=== PATIENT | female | born 1980 | race African-American/Black ===

== ENCOUNTER 2017-04-11 11:29 | Emergency (ER) | payer OTHER ==
[~2017-04-11] VITALS: Ht 157.5 cm; Wt 76.8 kg
[~2017-04-11 11:29] MED LIST: ALDACTONE50 MG PO; AMOXICILLIN 50500 MG PO; BACTRIM DS 8001 TAB PO; CARAFATE 1GM1 G PO; CELEBREX50 MG PO; CELLCEPT 5500 MG/TAB PO; CEPHALEXIN500 M1 PO; FLEXERIL 1010 MG/TAB PO; LINZESS145CAP PO; LINZESS290CAP PO; MAXALT10 MG PO; MOTRIN 200200 MG/TAB PO; MOTRIN 800800 MG/TAB PO; NAPROSYN500 MG PO; NO HOME MEDICATIONS; NORCO 325 MG-51 TAB PO; NORVASC 10MG10 MG PO; ONE DAILY MULTI1 TA1 PO; PERCOCET 325 MG1 TA2 PO; PLAQUENIL 200M200 MG PO; PREDNISONE10 MG PO; PRIL40 PO; PROVENTIL0.09 MG/A1 IH; TUSS PO; ULTRAM 50MG TAB50 MG; ULTRAM 50MG TAB50 MG PO; VITAMIN D1000 IU PO; ZOVIA 1/35E 351 TA1 PO
[2017-04-11 11:32] VITALS: TEMP 99.1
[2017-04-11] MEDS ORDERED: CLARITIN 1010 MG/TAB PO (11:35)
[2017-04-11] MEDS ORDERED: CIALIS5 MG PO (11:35)
[2017-04-11] MEDS ORDERED: ASPIRIN 81M81 MG/TA2 PO (11:37)
[2017-04-11] MEDS ORDERED: NEXIUM 40MG40 MG PO (11:37)
[2017-04-11 12:26] LABS: PH 6 (5-8); SQUAMOUS EPITHELIAL 0-2 /hpf; URINE APPEARANCE Clear; URINE BACTERIA None Seen /hpf; URINE BILIRUBIN Negative (NEGATIVE); URINE BLOOD Negative (NEGATIVE); URINE COLOR Straw; URINE GLUCOSE Negative (NEGATIVE); URINE KETONE Negative (NEGATIVE); URINE RBC None Seen /hpf; URINE UROBILINOGEN Negative (NEGATIVE); URINE WBC 0-2 /hpf
[2017-04-11 12:33] LABS: BASO % 0.8 % (0.0-2.0); EOS # 0.3 (0.0-0.7); EOS % 5.4 % (0-4.0); GRAN # 1.8 (1.4-6.5); GRAN % 34.9 % (42.2-75.2); HEMATOCRIT 37.4 % (37.0-47.0); LYMPH # 2.3 (1.2-3.4); LYMPH % 45.6 % (20.0-51.0); MEAN CELL VOLUME 86 fl (80.0-100.0); MEAN CORPUSCULAR HEMOGLOBIN 27 pg (27.0-31.0); MEAN CORPUSCULAR HGB CONC 32 g/dl (33.0-37.0); MONO # 0.7 (0.1-0.6); MONO % 13.1 % (1.7-9.3); PLATELET COUNT 295 K/mm3 (130-400); RED BLOOD COUNT 4.36 M/mm3 (4.10-5.30); REDCELL DISTRIBUTION WIDTH-CV 13.3 % (11.5-14.5)
[2017-04-11 12:34] LABS: HEMOGLOBIN 11.8 g/dl (12.5-16.0)
[2017-04-11 12:45] LABS: ADJUSTED CALCIUM 8.8 mg/dL (8.4-10.2); ALANINE AMINOTRANSFERASE 16 U/L (9-52); ALBUMIN 4.4 gm/dL (3.5-5.0); ALKALINE PHOSPHATASE 77 U/L (50-136); ANION GAP 12 mmol/L (7-16); BILIRUBIN,TOTAL 0.5 mg/dL (0.0-1.0); BLOOD UREA NITROGEN 10 mg/dL (7-17); CALCIUM 9.1 mg/dL (8.4-10.2); CARBON DIOXIDE 23 mmol/L (22-30); CHLORIDE 103 mmol/L (98-107); CREATININE, serum 0.61 mg/dL (0.52-1.25); GLUCOSE 71 mg/dL (74-106); LIPASE 86 U/L (23-300); POTASSIUM 4.1 mmol/L (3.4-5.0); SODIUM 138 mmol/L (137-145); TOTAL PROTEIN 8.2 gm/dL (6.4-8.2)
[2017-04-11 12:46] LABS: C-REACTIVE PROTEIN < 0.5 mg/dL (0.0-0.9)
[2017-04-11] MEDS ORDERED: NORCO 325 MG-51 TAB PO (13:50)
[2017-04-11 14:18] VITALS: BP 118/75; PULSE 80
== END 2017-04-11 14:20 | disposition home or self-care (01) ==
LOC: COL.ER 11:29
PROVIDERS: Emergency Medicine
DX: N83.201 Unspecified ovarian cyst, right side (principal); I10 Essential (primary) hypertension; J45.909 Unspecified asthma, uncomplicated; R11.0 Nausea; M34.9 Systemic sclerosis, unspecified
CPT/HCPCS: J2405; J7030; Q9967

== ENCOUNTER 2017-05-26 06:45 | Emergency (ER) | payer OTHER ==
[~2017-05-26] VITALS: Ht 157.5 cm; Wt 77.3 kg
[~2017-05-26 06:45] MED LIST changes: +ASPIRIN 81M81 MG/TA2 PO; +CIALIS5 MG PO; +CLARITIN 1010 MG/TAB PO; +NEXIUM 40MG40 MG PO
[2017-05-26 06:48] VITALS: TEMP 99.1
[2017-05-26] MEDS ORDERED: NEXIUM 20MG20 MG PO (06:54)
[2017-05-26 07:38] LABS: BASO % 0.6 % (0.0-2.0); EOS # 0.1 (0.0-0.7); GRAN # 4.5 (1.4-6.5); GRAN % 68.7 % (42.2-75.2); LYMPH # 1.4 (1.2-3.4); LYMPH % 20.7 % (20.0-51.0); MEAN CELL VOLUME 85 fl (80.0-100.0); MEAN CORPUSCULAR HGB CONC 31 g/dl (33.0-37.0); MEAN PLATELET VOLUME 10.4 fl (7.4-10.4); MONO # 0.5 (0.1-0.6); MONO % 7.5 % (1.7-9.3); PLATELET COUNT 291 K/mm3 (130-400); RED BLOOD COUNT 4.24 M/mm3 (4.10-5.30); REDCELL DISTRIBUTION WIDTH-CV 13.4 % (11.5-14.5); WHITE BLOOD COUNT 6.6 K/mm3 (4.8-10.8)
[2017-05-26 07:39] LABS: HEMOGLOBIN 11.2 g/dl (12.5-16.0); MEAN CORPUSCULAR HEMOGLOBIN 26 pg (27.0-31.0)
[2017-05-26 07:57] LABS: ADJUSTED CALCIUM 8.8 mg/dL (8.4-10.2); ALANINE AMINOTRANSFERASE 21 U/L (9-52); ALBUMIN 4.3 gm/dL (3.5-5.0); ALKALINE PHOSPHATASE 97 U/L (50-136); ANION GAP 10 mmol/L (7-16); BILIRUBIN,TOTAL 0.4 mg/dL (0.0-1.0); BLOOD UREA NITROGEN 12 mg/dL (7-17); CARBON DIOXIDE 23 mmol/L (22-30); CHLORIDE 104 mmol/L (98-107); CREATININE, serum 0.56 mg/dL (0.52-1.25); GLUCOSE 85 mg/dL (74-106); POTASSIUM 3.8 mmol/L (3.4-5.0); SODIUM 138 mmol/L (137-145); TOTAL PROTEIN 7.9 gm/dL (6.4-8.2)
[2017-05-26 07:58] LABS: C-REACTIVE PROTEIN < 0.5 mg/dL (0.0-0.9)
[2017-05-26 08:16] LABS: PH 7 (5-8); SQUAMOUS EPITHELIAL 0-2 /hpf; URINE APPEARANCE Clear; URINE BACTERIA Rare /hpf; URINE BILIRUBIN Negative (NEGATIVE); URINE BLOOD Negative (NEGATIVE); URINE COLOR Colorless; URINE GLUCOSE Negative (NEGATIVE); URINE KETONE Negative (NEGATIVE); URINE RBC None Seen /hpf; URINE UROBILINOGEN Negative (NEGATIVE); URINE WBC 0-2 /hpf
[2017-05-26 09:17] VITALS: BP 113/73; PULSE 85
== END 2017-05-26 09:17 | disposition home or self-care (01) ==
LOC: COL.ER 06:45
PROVIDERS: Emergency Medicine
DX: G89.29 Other chronic pain (principal); R10.31 Right lower quadrant pain; K21.9 Gastro-esophageal reflux disease without esophagitis; I10 Essential (primary) hypertension; I73.00 Raynaud's syndrome without gangrene; M34.9 Systemic sclerosis, unspecified
CPT/HCPCS: J2765; J7030; Q9967

== ENCOUNTER 2017-07-21 13:43 | Day surgery (SDC) | payer OTHER ==
[~2017-07-21] VITALS: Ht 160 cm; Wt 75.9 kg
[~2017-07-21 13:43] MED LIST changes: +NEXIUM 20MG20 MG PO
[2017-07-21] MEDS ORDERED: NORVASC 5MG5 MG/TAB PO (14:14)
[2017-07-21 14:17] VITALS: BP 126/72; PULSE 88; TEMP 98.5
[2017-07-21] MEDS ORDERED: TYLENOL 325MG325 MG PO (14:18)
[2017-07-21] MEDS ORDERED: ADVIL200 MG PO (14:18)
[2017-07-21] MEDS ORDERED: CLARITIN 1010 MG/TAB PO (14:19)
[2017-07-21] MEDS ORDERED: MULTI VITAMINS1 TAB PO (14:20)
[2017-07-21 15:35] VITALS: BP 96/57; PULSE 73; TEMP 98.1
[2017-07-21 15:45] VITALS: BP 100/66; PULSE 74
[2017-07-21 16:00] VITALS: BP 78/63; PULSE 73
[2017-07-21 16:07] VITALS: BP 93/53; PULSE 76
== END 2017-07-21 16:44 | disposition home or self-care (01) ==
LOC: SDCO 13:43
DX: K22.8 Other specified diseases of esophagus (principal); K21.9 Gastro-esophageal reflux disease without esophagitis; K30 Functional dyspepsia; K29.30 Chronic superficial gastritis without bleeding; K59.00 Constipation, unspecified; D50.9 Iron deficiency anemia, unspecified; K58.9 Irritable bowel syndrome, unspecified; K25.9 Gastric ulcer, unspecified as acute or chronic, without hemorrhage or perforation
CPT/HCPCS: J2250; J2405; J3010; J7030

== ENCOUNTER → 2017-08-28 | Outpatient (CLI) | payer OTHER ==
[~2017-08-28] MED LIST changes: +ADVIL200 MG PO; +MULTI VITAMINS1 TAB PO; +NORVASC 5MG5 MG/TAB PO; +TYLENOL 325MG325 MG PO
== END ==
LOC: COL.RAD 10:19
DX: R10.13 Epigastric pain (principal); K59.00 Constipation, unspecified; R11.0 Nausea
CPT/HCPCS: A9537

== ENCOUNTER 2017-10-07 09:08 | Emergency (ER) | payer OTHER ==
[~2017-10-07] VITALS: Ht 160 cm; Wt 75.9 kg
[2017-10-07 09:11] VITALS: TEMP 98.4
[2017-10-07 09:59] LABS: COLLECTION METHOD CLEAN CATCH
[2017-10-07 10:06] LABS: BASO % 0.7 % (0.0-2.0); EOS # 0.2 (0.0-0.7); EOS % 3.9 % (0-4.0); GRAN % 44.1 % (42.2-75.2); LYMPH # 1.7 (1.2-3.4); LYMPH % 37.6 % (20.0-51.0); MEAN CELL VOLUME 83 fl (80.0-100.0); MEAN CORPUSCULAR HGB CONC 31 g/dl (33.0-37.0); MEAN PLATELET VOLUME 11.2 fl (7.4-10.4); MONO # 0.6 (0.1-0.6); MONO % 13.5 % (1.7-9.3); PLATELET COUNT 272 K/mm3 (130-400); RED BLOOD COUNT 4.18 M/mm3 (4.10-5.30); WHITE BLOOD COUNT 4.6 K/mm3 (4.8-10.8)
[2017-10-07 10:07] LABS: HEMATOCRIT 34.6 % (37.0-47.0); HEMOGLOBIN 10.6 g/dl (12.5-16.0); MEAN CORPUSCULAR HEMOGLOBIN 25 pg (27.0-31.0)
[2017-10-07] MEDS ORDERED: LIPITOR 10MG10 MG PO (10:11)
[2017-10-07 10:14] LABS: ADJUSTED CALCIUM 8.7 mg/dL (8.4-10.2); ALANINE AMINOTRANSFERASE 21 U/L (9-52); ALBUMIN 4.6 gm/dL (3.5-5.0); ALKALINE PHOSPHATASE 70 U/L (50-136); ANION GAP 9 mmol/L (7-16); BILIRUBIN,TOTAL 0.7 mg/dL (0.0-1.0); BLOOD UREA NITROGEN 15 mg/dL (7-17); CALCIUM 9.2 mg/dL (8.4-10.2); CARBON DIOXIDE 25 mmol/L (22-30); CHLORIDE 104 mmol/L (98-107); CREATININE, serum 0.58 mg/dL (0.52-1.25); GLUCOSE 87 mg/dL (74-106); LIPASE 92 U/L (23-300); SODIUM 138 mmol/L (137-145); TOTAL PROTEIN 8.1 gm/dL (6.4-8.2)
[2017-10-07 10:17] LABS: C-REACTIVE PROTEIN < 0.5 mg/dL (0.0-0.9); POTASSIUM 3.9 mmol/L (3.4-5.0)
[2017-10-07 10:25] LABS: MUCOUS Present /lpf; PH 6 (5-8); URINE APPEARANCE Clear; URINE BACTERIA None Seen /hpf; URINE BILIRUBIN Negative (NEGATIVE); URINE BLOOD Negative (NEGATIVE); URINE COLOR Yellow; URINE GLUCOSE Negative (NEGATIVE); URINE KETONE Trace (NEGATIVE); URINE LEUKOCYTE ESTERASE Negative (NEGATIVE); URINE PROTEIN(semi-quant) Negative (NEGATIVE); URINE RBC 0-2 /hpf; URINE UROBILINOGEN Negative (NEGATIVE)
[2017-10-07] MEDS ORDERED: NAPROXEN 3375 MG/TAB PO (10:42)
[2017-10-07] MEDS ORDERED: ZOFRAN ODT4 MG PO (10:42)
[2017-10-07 11:26] VITALS: BP 118/71; PULSE 72
== END 2017-10-07 11:00 | disposition home or self-care (01) ==
LOC: COL.ER 09:08
PROVIDERS: Emergency Medicine
DX: R10.11 Right upper quadrant pain (principal)
CPT/HCPCS: J1885; J2765; J7030

== ENCOUNTER 2017-10-30 20:12 | Emergency (ER) | payer OTHER ==
[~2017-10-30] VITALS: Ht 157.5 cm; Wt 80.0 kg
[~2017-10-30 20:12] MED LIST changes: +LIPITOR 10MG10 MG PO; +NAPROXEN 3375 MG/TAB PO; -TYLENOL 325MG325 MG PO; +TYLENOL 500MG500 MG PO; +ZOFRAN ODT4 MG PO
[2017-10-30 20:14] VITALS: TEMP 99.3
[2017-10-30 20:54] LABS: COLLECTION METHOD CLEAN CATCH
[2017-10-30 20:59] LABS: PH 6 (5-8); SQUAMOUS EPITHELIAL 0-2 /hpf; URINE APPEARANCE Clear; URINE BACTERIA None Seen /hpf; URINE BILIRUBIN Negative (NEGATIVE); URINE BLOOD 2+ (NEGATIVE); URINE COLOR Straw; URINE GLUCOSE Negative (NEGATIVE); URINE KETONE Negative (NEGATIVE); URINE LEUKOCYTE ESTERASE Negative (NEGATIVE); URINE NITRATE Negative (NEGATIVE); URINE PROTEIN(semi-quant) Negative (NEGATIVE); URINE RBC 0-2 /hpf; URINE UROBILINOGEN Negative (NEGATIVE)
[2017-10-30 23:15] LABS: BASO % 0.7 % (0.0-2.0); EOS # 0.2 (0.0-0.7); EOS % 4.4 % (0-4.0); GRAN # 1.5 (1.4-6.5); LYMPH # 2.4 (1.2-3.4); LYMPH % 52.9 % (20.0-51.0); MEAN CELL VOLUME 82 fl (80.0-100.0); MEAN CORPUSCULAR HGB CONC 30 g/dl (33.0-37.0); MEAN PLATELET VOLUME 10.4 fl (7.4-10.4); MONO # 0.4 (0.1-0.6); MONO % 8.8 % (1.7-9.3); PLATELET COUNT 313 K/mm3 (130-400); RED BLOOD COUNT 4.38 M/mm3 (4.10-5.30); REDCELL DISTRIBUTION WIDTH-CV 14.3 % (11.5-14.5)
[2017-10-30 23:17] LABS: HEMATOCRIT 35.9 % (37.0-47.0); HEMOGLOBIN 10.8 g/dl (12.5-16.0); MEAN CORPUSCULAR HEMOGLOBIN 25 pg (27.0-31.0)
[2017-10-30 23:26] LABS: ALBUMIN 4.4 gm/dL (3.5-5.0); BILIRUBIN,TOTAL 0.3 mg/dL (0.0-1.0); CALCIUM 9.2 mg/dL (8.4-10.2); CREATININE, serum 0.69 mg/dL (0.52-1.25); POTASSIUM 3.7 mmol/L (3.4-5.0)
[2017-10-31 00:24] VITALS: BP 115/81; PULSE 80
== END 2017-10-31 00:24 | disposition home or self-care (01) ==
LOC: COL.ER 20:12
PROVIDERS: Emergency Medicine
DX: N89.8 Other specified noninflammatory disorders of vagina (principal); J45.909 Unspecified asthma, uncomplicated; E78.5 Hyperlipidemia, unspecified; Z87.19 Personal history of other diseases of the digestive system; Z98.51 Tubal ligation status

== ENCOUNTER 2018-01-20 18:55 | Emergency (ER) | payer OTHER ==
[~2018-01-20] VITALS: Ht 157.5 cm; Wt 74.5 kg
[2018-01-20 19:20] VITALS: TEMP 98.5
[2018-01-20 20:19] LABS: BASO % 0.5 % (0.0-2.0); EOS # 0.2 (0.0-0.7); EOS % 2.7 % (0-4.0); GRAN # 2.4 (1.4-6.5); GRAN % 43.9 % (42.2-75.2); LYMPH # 2.3 (1.2-3.4); LYMPH % 40.9 % (20.0-51.0); MEAN CELL VOLUME 81 fl (80.0-100.0); MEAN CORPUSCULAR HGB CONC 30 g/dl (33.0-37.0); MONO # 0.7 (0.1-0.6); MONO % 11.8 % (1.7-9.3); PLATELET COUNT 286 K/mm3 (130-400); RED BLOOD COUNT 3.99 M/mm3 (4.10-5.30); REDCELL DISTRIBUTION WIDTH-CV 14.4 % (11.5-14.5)
[2018-01-20 20:21] LABS: HEMATOCRIT 32.2 % (37.0-47.0); HEMOGLOBIN 9.8 g/dl (12.5-16.0); MEAN CORPUSCULAR HEMOGLOBIN 25 pg (27.0-31.0)
[2018-01-20 20:29] LABS: INR 1.1 (0.8-3.0); PROTHROMBIN TIME 12.3 SECONDS (9.7-12.8)
[2018-01-20 20:40] LABS: ALANINE AMINOTRANSFERASE 31 U/L (9-52); ALKALINE PHOSPHATASE 102 U/L (50-136); ANION GAP 14 mmol/L (7-16); AST,SGOT 28 U/L (15-37); BILIRUBIN,TOTAL 0.2 mg/dL (0.0-1.0); BLOOD UREA NITROGEN 13 mg/dL (7-17); CALCIUM 8.7 mg/dL (8.4-10.2); CARBON DIOXIDE 22 mmol/L (22-30); CHLORIDE 105 mmol/L (98-107); CREATININE, serum 0.61 mg/dL (0.52-1.25); GLUCOSE 85 mg/dL (74-106); LIPASE 142 U/L (23-300); POTASSIUM 3.8 mmol/L (3.4-5.0); SODIUM 141 mmol/L (137-145); TOTAL PROTEIN 8.3 gm/dL (6.4-8.2)
[2018-01-20 20:47] LABS: ACETAMINOPHEN < 10 ug/mL (10-30); C-REACTIVE PROTEIN < 0.5 mg/dL (0.0-0.9)
[2018-01-20 21:22] LABS: COLLECTION METHOD CLEAN CATCH
[2018-01-20 21:27] LABS: PH 6 (5-8); SQUAMOUS EPITHELIAL 0-2 /hpf; URINE APPEARANCE Clear; URINE BACTERIA None Seen /hpf; URINE BILIRUBIN Negative (NEGATIVE); URINE BLOOD Negative (NEGATIVE); URINE COLOR Straw; URINE GLUCOSE Negative (NEGATIVE); URINE KETONE Negative (NEGATIVE); URINE LEUKOCYTE ESTERASE Negative (NEGATIVE); URINE NITRATE Negative (NEGATIVE); URINE PROTEIN(semi-quant) Negative (NEGATIVE); URINE RBC None Seen /hpf; URINE UROBILINOGEN Negative (NEGATIVE)
[2018-01-20] MEDS ORDERED: ROXICODONE 55 MG/TAB PO (22:01)
[2018-01-20 22:05] VITALS: BP 109/83; PULSE 84
== END 2018-01-20 22:05 | disposition home or self-care (01) ==
LOC: COL.ER 18:55
PROVIDERS: Emergency Medicine
DX: G89.29 Other chronic pain (principal); R10.31 Right lower quadrant pain; I10 Essential (primary) hypertension; E78.5 Hyperlipidemia, unspecified; K21.9 Gastro-esophageal reflux disease without esophagitis; Z87.2 Personal history of diseases of the skin and subcutaneous tissue; Z98.51 Tubal ligation status; Z90.49 Acquired absence of other specified parts of digestive tract
CPT/HCPCS: J1885

== ENCOUNTER → 2018-01-23 | Outpatient (CLI) | payer OTHER ==
[~2018-01-23] MED LIST changes: +ROXICODONE 55 MG/TAB PO
== END ==
LOC: MHCPAIN 10:55
DX: G58.8 Other specified mononeuropathies (principal)
CPT/HCPCS: J1040

== ENCOUNTER → 2018-02-16 | Outpatient (CLI) | payer OTHER | LOC: MHCPAIN 11:49 | DX: G89.29 Other chronic pain (principal); M79.2 Neuralgia and neuritis, unspecified; M79.1 Myalgia | CPT/HCPCS: G0463 ==

== ENCOUNTER → 2018-02-23 | Outpatient (CLI) | payer OTHER | LOC: MHCPAIN 09:51 | DX: G57.81 Other specified mononeuropathies of right lower limb (principal) | CPT/HCPCS: J1040 ==

== ENCOUNTER 2018-04-16 15:49 | Emergency (ER) | payer OTHER ==
[~2018-04-16] VITALS: Ht 157.5 cm; Wt 70.0 kg
[2018-04-16 15:54] VITALS: TEMP 98.2
[2018-04-16] MEDS ORDERED: LIORESAL 1010 MG/TAB PO (16:09)
[2018-04-16] MEDS ORDERED: DOXYCYCLINE HY100 MG PO (16:09)
[2018-04-16 16:56] LABS: BASO % 0.5 % (0.0-2.0); EOS # 0.1 (0.0-0.7); EOS % 2.4 % (0-4.0); GRAN # 1.3 (1.4-6.5); GRAN % 31.7 % (42.2-75.2); HEMATOCRIT 34.6 % (37.0-47.0); HEMOGLOBIN 10.2 g/dl (12.5-16.0); LYMPH # 2.2 (1.2-3.4); LYMPH % 53.3 % (20.0-51.0); MEAN CELL VOLUME 81 fl (80.0-100.0); MEAN CORPUSCULAR HEMOGLOBIN 24 pg (27.0-31.0); MEAN CORPUSCULAR HGB CONC 30 g/dl (33.0-37.0); MEAN PLATELET VOLUME 10.6 fl (7.4-10.4); MONO # 0.5 (0.1-0.6); MONO % 11.9 % (1.7-9.3); PLATELET COUNT 298 K/mm3 (130-400); RED BLOOD COUNT 4.27 M/mm3 (4.10-5.30); REDCELL DISTRIBUTION WIDTH-CV 16.2 % (11.5-14.5)
[2018-04-16 17:01] LABS: COLLECTION METHOD CLEAN CATCH
[2018-04-16 17:08] LABS: MUCOUS Present /lpf; PH 6 (5-8); URINE APPEARANCE Clear; URINE BACTERIA None Seen /hpf; URINE BILIRUBIN Negative (NEGATIVE); URINE BLOOD Negative (NEGATIVE); URINE COLOR Yellow; URINE GLUCOSE Negative (NEGATIVE); URINE KETONE Negative (NEGATIVE); URINE LEUKOCYTE ESTERASE Negative (NEGATIVE); URINE NITRATE Negative (NEGATIVE); URINE PROTEIN(semi-quant) Negative (NEGATIVE); URINE RBC 0-2 /hpf; URINE UROBILINOGEN Negative (NEGATIVE)
[2018-04-16 17:22] LABS: ALANINE AMINOTRANSFERASE 19 U/L (9-52); ALBUMIN 4.2 gm/dL (3.5-5.0); ALKALINE PHOSPHATASE 93 U/L (50-136); ANION GAP 11 mmol/L (7-16); AST,SGOT 30 U/L (15-37); BILIRUBIN,TOTAL 0.2 mg/dL (0.0-1.0); BLOOD UREA NITROGEN 15 mg/dL (7-17); CALCIUM 9.2 mg/dL (8.4-10.2); CARBON DIOXIDE 26 mmol/L (22-30); CHLORIDE 103 mmol/L (98-107); CREATININE, serum 0.62 mg/dL (0.52-1.25); GLUCOSE 82 mg/dL (74-106); POTASSIUM 3.5 mmol/L (3.4-5.0); SODIUM 140 mmol/L (137-145); TOTAL PROTEIN 7.9 gm/dL (6.4-8.2)
[2018-04-16 17:23] LABS: C-REACTIVE PROTEIN < 0.5 mg/dL (0.0-0.9)
[2018-04-16] MEDS ORDERED: MOTRIN 800800 MG/TAB PO (17:27)
[2018-04-16 17:30] VITALS: BP 107/61; PULSE 67
== END 2018-04-16 17:34 | disposition home or self-care (01) ==
LOC: COL.ER 15:49
PROVIDERS: Physician Assistant
DX: G89.29 Other chronic pain (principal); R10.11 Right upper quadrant pain; R10.31 Right lower quadrant pain; I10 Essential (primary) hypertension; K21.9 Gastro-esophageal reflux disease without esophagitis
CPT/HCPCS: J1170; J2550

== ENCOUNTER 2018-10-27 22:08 | Emergency (ER) | payer OTHER ==
[~2018-10-27] VITALS: Ht 157.5 cm; Wt 77.3 kg
[~2018-10-27 22:08] MED LIST changes: +DOXYCYCLINE HY100 MG PO; +LIORESAL 1010 MG/TAB PO
[2018-10-27 22:11] VITALS: TEMP 98.8
[2018-10-27] MEDS ORDERED: PROTONIX20 MG PO (22:34)
[2018-10-27 22:36] LABS: BASO % 0.6 % (0.0-2.0); EOS # 0.2 (0.0-0.7); EOS % 3.4 % (0-4.0); GRAN # 1.8 (1.4-6.5); GRAN % 37.5 % (42.2-75.2); HEMOGLOBIN 11.1 g/dl (12.5-16.0); LYMPH # 2.2 (1.2-3.4); LYMPH % 47.1 % (20.0-51.0); MEAN CELL VOLUME 83 fl (80.0-100.0); MEAN CORPUSCULAR HEMOGLOBIN 25 pg (27.0-31.0); MEAN CORPUSCULAR HGB CONC 30 g/dl (33.0-37.0); MEAN PLATELET VOLUME 10.6 fl (7.4-10.4); MONO # 0.5 (0.1-0.6); MONO % 11.4 % (1.7-9.3); PLATELET COUNT 300 K/mm3 (130-400); REDCELL DISTRIBUTION WIDTH-CV 14.7 % (11.5-14.5)
[2018-10-27 22:37] LABS: HEMATOCRIT 36.5 % (37.0-47.0)
[2018-10-27 22:46] LABS: ALANINE AMINOTRANSFERASE 13 U/L (9-52); ALBUMIN 4.3 gm/dL (3.5-5.0); ALKALINE PHOSPHATASE 80 U/L (50-136); ANION GAP 7 mmol/L (7-16); AST,SGOT 32 U/L (15-37); BILIRUBIN,TOTAL 0.3 mg/dL (0.0-1.0); BLOOD UREA NITROGEN 13 mg/dL (7-17); C-REACTIVE PROTEIN < 0.5 mg/dL (0.0-0.9); CALCIUM 9.3 mg/dL (8.4-10.2); CARBON DIOXIDE 28 mmol/L (22-30); CHLORIDE 104 mmol/L (98-107); CREATININE, serum 0.79 mg/dL (0.52-1.25); GLUCOSE 82 mg/dL (74-106); LIPASE 119 U/L (23-300); POTASSIUM 3.9 mmol/L (3.4-5.0); SODIUM 139 mmol/L (137-145)
[2018-10-27 22:57] LABS: TROPONIN-I < 0.012 ng/mL (0.000-0.034)
[2018-10-28 00:27] VITALS: BP 107/70; PULSE 75
== END 2018-10-28 00:27 | disposition home or self-care (01) ==
LOC: COL.ER 22:08
PROVIDERS: Emergency Medicine
DX: R07.89 Other chest pain (principal); I10 Essential (primary) hypertension; E78.5 Hyperlipidemia, unspecified; K21.9 Gastro-esophageal reflux disease without esophagitis; Z87.39 Personal history of other diseases of the musculoskeletal system and connective tissue
CPT/HCPCS: Q9967

== ENCOUNTER → 2018-12-19 | Outpatient (CLI) | payer OTHER ==
[~2018-12-19] MED LIST changes: +PROTONIX20 MG PO
== END ==
LOC: COL.RAD 07:50
DX: K21.9 Gastro-esophageal reflux disease without esophagitis (principal); K58.9 Irritable bowel syndrome, unspecified
CPT/HCPCS: A9541

== ENCOUNTER → 2019-05-08 | Outpatient (CLI) | payer OTHER | LOC: COL.RAD 08:27 | DX: M25.751 Osteophyte, right hip (principal) | CPT/HCPCS: A9585; Q9967 ==

== ENCOUNTER → 2019-05-30 | Outpatient (CLI) | payer OTHER | LOC: COL.RAD 12:15 | DX: M25.551 Pain in right hip (principal) | CPT/HCPCS: J3301; Q9967 ==

== ENCOUNTER 2019-09-05 15:45 | Outpatient (RCR) | payer OTHER ==
[2019-09-19] MEDS ORDERED: CRUTCHES MC (18:50)
== END 2019-10-04 11:16 | disposition home or self-care (01) ==
LOC: WSC 15:45 → EDSTATUS 16:00 → WSC 16:00
DX: M25.559 Pain in unspecified hip (principal); M25.562 Pain in left knee

== ENCOUNTER 2019-09-19 16:40 | Emergency (ER) | payer OTHER ==
[~2019-09-19] VITALS: Ht 157.5 cm; Wt 78.6 kg
[2019-09-19 17:58] LABS: BASO % 0.7 % (0.0-2.0); EOS # 0.2 (0.0-0.7); EOS % 4.4 % (0-4.0); GRAN # 1.8 (1.4-6.5); GRAN % 43.2 % (42.2-75.2); HEMATOCRIT 38.2 % (37.0-47.0); LYMPH # 1.8 (1.2-3.4); MEAN CELL VOLUME 88 fl (80.0-100.0); MEAN CORPUSCULAR HEMOGLOBIN 28 pg (27.0-31.0); MEAN CORPUSCULAR HGB CONC 31 g/dl (33.0-37.0); MEAN PLATELET VOLUME 11.1 fl (7.4-10.4); MONO # 0.5 (0.1-0.6); MONO % 10.5 % (1.7-9.3); PLATELET COUNT 253 K/mm3 (130-400); RED BLOOD COUNT 4.36 M/mm3 (4.10-5.30)
[2019-09-19 18:07] LABS: ALANINE AMINOTRANSFERASE 14 U/L (9-52); ALBUMIN 4.6 gm/dL (3.5-5.0); ALKALINE PHOSPHATASE 76 U/L (50-136); ANION GAP 10 mmol/L (7-16); AST,SGOT 28 U/L (15-37); BILIRUBIN,TOTAL 0.3 mg/dL (0.0-1.0); BLOOD UREA NITROGEN 8 mg/dL (7-17); CALCIUM 9.4 mg/dL (8.4-10.2); CARBON DIOXIDE 25 mmol/L (22-30); CHLORIDE 106 mmol/L (98-107); GLUCOSE 105 mg/dL (74-106); POTASSIUM 3.6 mmol/L (3.4-5.0); SODIUM 141 mmol/L (137-145); TOTAL PROTEIN 8.1 gm/dL (6.4-8.2); URIC ACID 3.3 mg/dL (2.5-6.2)
[2019-09-19 18:14] LABS: C-REACTIVE PROTEIN < 0.5 mg/dL (0.0-0.9)
[2019-09-19 18:30] LABS: ERYTHROCYTE SEDIMENTATION RATE 12 mm/hr (0-20)
[2019-09-19] MEDS ORDERED: CRUTCHES MC (18:50)
[2019-09-19 19:00] VITALS: BP 122/78; PULSE 78; TEMP 98.1
== END 2019-09-19 19:01 | disposition home or self-care (01) ==
LOC: COL.ER 16:40
PROVIDERS: Nurse Practitioner
DX: M79.671 Pain in right foot (principal); Z98.51 Tubal ligation status; Z90.89 Acquired absence of other organs; Z95.9 Presence of cardiac and vascular implant and graft, unspecified

== ENCOUNTER 2020-11-18 20:16 | Emergency (ER) | payer OTHER ==
[~2020-11-18] VITALS: Ht 160 cm; Wt 77.7 kg
[~2020-11-18 20:16] MED LIST changes: +CRUTCHES MC
[2020-11-18 20:43] VITALS: BP 135/73; TEMP 98.6
[2020-11-18 22:26] LABS: BASO % 0.3 % (0.0-2.0); EOS # 0.1 (0.0-0.7); EOS % 1.8 % (0-4.0); GRAN % 49.4 % (42.2-75.2); HEMOGLOBIN 12.7 g/dl (12.5-16.0); LYMPH # 2.3 (1.2-3.4); LYMPH % 37.9 % (20.0-51.0); MEAN CELL VOLUME 94 fl (80.0-100.0); MEAN CORPUSCULAR HEMOGLOBIN 29 pg (27.0-31.0); MEAN CORPUSCULAR HGB CONC 31 g/dl (33.0-37.0); MEAN PLATELET VOLUME 10.3 fl (7.4-10.4); MONO # 0.6 (0.1-0.6); MONO % 10.3 % (1.7-9.3); PLATELET COUNT 276 K/mm3 (130-400); RED BLOOD COUNT 4.38 M/mm3 (4.10-5.30); REDCELL DISTRIBUTION WIDTH-CV 12.5 % (11.5-14.5)
[2020-11-18 22:28] LABS: PROTHROMBIN TIME 11.2 SECONDS (9.7-12.8)
[2020-11-18 23:05] LABS: ALANINE AMINOTRANSFERASE 11 U/L (4-34); ALBUMIN 4.5 gm/dL (3.5-5.0); ALKALINE PHOSPHATASE 87 U/L (50-136); ANION GAP 11 mmol/L (7-16); AST,SGOT 22 U/L (15-37); BILIRUBIN,TOTAL 0.3 mg/dL (0.0-1.0); BLOOD UREA NITROGEN 16 mg/dL (7-17); C-REACTIVE PROTEIN < 0.5 mg/dL (0.0-0.9); CALCIUM 9.6 mg/dL (8.4-10.2); CARBON DIOXIDE 27 mmol/L (22-30); CHLORIDE 102 mmol/L (98-107); CREATININE, serum 0.83 (0.52-1.25); GLUCOSE 82 mg/dL (74-106); POTASSIUM 4.2 mmol/L (3.4-5.0); SODIUM 139 mmol/L (137-145); TOTAL PROTEIN 7.7 gm/dL (6.4-8.2)
[2020-11-18 23:17] VITALS: PULSE 70
== END 2020-11-18 23:17 | disposition home or self-care (01) ==
LOC: COL.ER 20:16
PROVIDERS: Nurse Practitioner
DX: M79.661 Pain in right lower leg (principal); Z88.1 Allergy status to other antibiotic agents

== ENCOUNTER 2021-07-22 10:34 | Day surgery (SDC) | payer OTHER ==
[2021-07-22] VITALS (11 sets, daily range): BP systolic 114–135; BP diastolic 56–84; PULSE 70–93; TEMP 97.5–98.8
[~2021-07-22] VITALS: Ht 160 cm; Wt 79.7 kg
[~2021-07-22 10:34] MED LIST changes: +PROTONIX 40MG T40 MG PO; -PROTONIX20 MG PO
[2021-07-22] MEDS ORDERED: ALLEGRA 180MG180 MG PO (11:02)
[2021-07-22] MEDS ORDERED: GINKGO3 PO (11:02)
[2021-07-22] MEDS ORDERED: IMITREX50 MG PO (11:05)
[2021-07-22] MEDS ORDERED: MASON NATURAL2000 IU PO (11:06)
[2021-07-22] MEDS ORDERED: VITAMIN C500 MG PO (11:07)
[2021-07-22] MEDS ORDERED: FERRO-TIME325 MG PO (11:08)
[2021-07-22] MEDS ORDERED: NEPHROCAP PO (11:08)
[2021-07-22] MEDS ORDERED: PERCOCET 325 MG1 TA2 PO (12:17)
[2021-07-22] MEDS ORDERED: MOTRIN 800800 MG/TAB PO (12:17)
--- NOTE | 2021-07-22 18:14 | NUR ---
Pt ambulated to the [place] and back with a steady gait. Requesting to have juarez dc'd, discussed with Dr. Dunlap. Juarez dc'd after ambulation. Four lap sites to abdomen CDI, edges well approximated. IVF infusing into R hand without issue. Pt on clear liquid diet. Will progress when able. POC discussed with patient and her . No needs at this time. Call light within reach.
--- NOTE | 2021-07-22 18:33 | NUR ---
Pt states she feels "crampy", Tylenol administered along with Kpad.
--- NOTE | 2021-07-22 23:37 | NUR ---
PT RESTING IN BED. EVENING MEDICATIONS GIVEN. SHIFT ASSESSMENT COMPLETED. FOUR LAP SITES NOTED TO ABDOMEN, THEY APPEAR C/D/I. PT REPORTS ABDOMINAL CRAMPING WELL SOME LOWER BACK PAIN. TOLERATING CLEAR LIQUID DIET, DENIES HAVING A BM OR PASSING GAS. DOES REPORT FEELING HER STOMACH "GURGLE." REPORTS MINIMAL VAGINAL BLEEDING.
[2021-07-23 03:50] VITALS: BP 119/59; PULSE 73; TEMP 99
--- NOTE | 2021-07-23 05:47 | NUR ---
PT HAS EXPERIENCED MODERATE PAIN THROUGHOUT MOST OF THE NIGHT. HAVE BEEN TRYING TO STAY ON TOP OF IT BY ROTATING PAIN MEDICATIONS. PT HAS NOT PASSED ANY GAS. WILL CONTINUE TO MONITOR.
[2021-07-23 06:59] VITALS: BP 128/55; PULSE 74; TEMP 99.1
--- NOTE | 2021-07-23 08:00 | NUR ---
Patient sitting up in bed. Alert and oriented x 3. Assessment complete. Denies pain at this time. Patient up independently in room. Lap sites x 4 with edges wel approximated. IV to right hand without complications. Denies needs at this time.
--- NOTE | 2021-07-23 09:51 | NUR ---
Initial visit; Patient thanked [employer] for looking in on her, keeping her in [employer]'s prayers and offering God's blessings.
--- NOTE | 2021-07-23 09:56 | NUR ---
Discharge education provided to patient. Educated on when to call provider and patient states she already has follow up appointments scheduled. Educated on all new medications and medication safety. INT to right hand discontinued catheter tip intact. Denies needs at this time. Patient out with family and surgical staff.
== END 2021-07-23 09:58 | disposition home or self-care (01) ==
LOC: SDCO 10:34 → MEDICAL 15:06 → SDCO 07-23 09:58
PROVIDERS: Obstetrics & Gynecology
DX: D25.2 Subserosal leiomyoma of uterus (principal); N92.0 Excessive and frequent menstruation with regular cycle; N83.8 Other noninflammatory disorders of ovary, fallopian tube and broad ligament; D64.9 Anemia, unspecified; I27.20 Pulmonary hypertension, unspecified; K21.9 Gastro-esophageal reflux disease without esophagitis; M34.9 Systemic sclerosis, unspecified; M06.9 Rheumatoid arthritis, unspecified; E66.9 Obesity, unspecified; Z68.31 Body mass index [BMI] 31.0-31.9, adult; Z20.822 Contact with and (suspected) exposure to COVID-19; Z79.899 Other long term (current) drug therapy
CPT/HCPCS: OP; A4314; J0330; J1100; J1170; J1885; J2405; J2704; J3010; J7120; J7517

== ENCOUNTER 2022-05-28 17:04 | Emergency (ER) | payer OTHER ==
[~2022-05-28 17:04] MED LIST changes: +ALLEGRA 180MG180 MG PO; +FERRO-TIME325 MG PO; +GINKGO3 PO; +IMITREX50 MG PO; +MASON NATURAL2000 IU PO; +NEPHROCAP PO; +VITAMIN C500 MG PO
== END 2022-05-28 17:35 | disposition left against medical advice (07) ==
LOC: COL.ER 17:04
DX: R69 Illness, unspecified (principal)

== ENCOUNTER 2024-06-07 12:38 | Emergency (ER) | payer OTHER ==
[~2024-06-07] VITALS: Ht 157.5 cm; Wt 78.2 kg
[2024-06-07 12:48] VITALS: TEMP 99.3
[2024-06-07] MEDS ORDERED: droPERidol 2.5 MG/ML 2 ML VIAL IV ONE (13:45)
[2024-06-07] MEDS ORDERED: NS 1,000 ML IV ONE (13:45)
[2024-06-07 13:58] LABS: GRAN # 6.7 K/mm3 (1.4-6.5); GRAN % 93.4 % (42.2-75.2); HEMATOCRIT 41.9 % (37.0-47.0); HEMOGLOBIN 13.9 g/dl (12.5-16.0); LYMPH # 0.2 K/mm3 (1.2-3.4); LYMPH % 2.8 % (20.0-51.0); MEAN CELL VOLUME 91 fl (80.0-100.0); MEAN CORPUSCULAR HEMOGLOBIN 30 pg (27-31); MEAN CORPUSCULAR HGB CONC 33 g/dl (33.0-37.0); MEAN PLATELET VOLUME 10.5 fl (7.4-10.4); MONO # 0.3 K/mm3 (0.1-0.6); MONO % 3.5 % (1.7-9.3); PLATELET COUNT 186 K/mm3 (130-400); REDCELL DISTRIBUTION WIDTH-CV 12.4 % (11.5-14.5)
[2024-06-07] MEDS ORDERED: Promethazine 50 MG/ML 1 ML VIAL IM ONE (14:00)
[2024-06-07 14:13] LABS: ALANINE AMINOTRANSFERASE 12 U/L (0-55); ALBUMIN 3.9 g/dL (3.5-5.0); ALKALINE PHOSPHATASE 61 U/L (40-150); ANION GAP 10 mmol/L (7-16); AST,SGOT 21 U/L (5-34); BILIRUBIN,TOTAL 0.5 mg/dL (0.2-1.2); BLOOD UREA NITROGEN 11 mg/dL (7-19); CALCIUM 8.9 mg/dL (8.4-10.2); CHLORIDE 105 mEq/L (98-107); CREATININE, serum 0.76 mg/dL (0.57-1.11); GLUCOSE 91 mg/dL (70-99); LIPASE 25 U/L (8-78); POTASSIUM 3.6 mEq/L (3.5-4.5); SODIUM 137 mEq/L (136-145); TOTAL PROTEIN 7.7 g/dl (6.2-8.1)
[2024-06-07 14:27] LABS: TROPONIN-I < 0.010 ng/mL (0.00-0.033)
[2024-06-07 14:32] LABS: COLLECTION METHOD CLEAN CATCH
[2024-06-07 14:48] LABS: URINE APPEARANCE CLEAR (CLEAR/HAZY); URINE BLOOD NEGATIVE (NEGATIVE); URINE COLOR Dark Yellow (YELLOW); URINE GLUCOSE NEGATIVE (NEGATIVE); URINE KETONE 1+ (NEGATIVE); URINE NITRATE NEGATIVE (NEGATIVE); URINE PROTEIN(semi-quant) 1+ (NEGATIVE)
[2024-06-07 15:07] LABS: MUCOUS PRESENT (NOT PRESENT); URINE RBC NONE SEEN /hpf (0-2); URINE WBC 0-2 /hpf (0-2)
[2024-06-07] MEDS ORDERED: Iohexol 300 - 100 ML VIAL IV ONE (15:17)
[2024-06-07] MEDS ORDERED: NS 100 ML IV SCH (15:18)
[2024-06-07] MEDS ORDERED: PHENERGAN 25 TA25 MG PO (16:49)
[2024-06-07 16:58] VITALS: BP 134/79; PULSE 90
== END 2024-06-07 17:03 | disposition home or self-care (01) ==
LOC: COL.ER 12:38
PROVIDERS: Nurse Practitioner
DX: R07.89 Other chest pain (principal); R19.7 Diarrhea, unspecified; R11.2 Nausea with vomiting, unspecified
CPT/HCPCS: J1790; J2550; J7030; Q9967